=== PATIENT | female | born 2000 | race Two or more races ===

== ENCOUNTER → 2023-11-25 10:20 | Outpatient (REF) | payer BC, SELFPAY ==
[2023-11-25 11:47] LABS: % Basophils 1.2 % (0-2); % Eosinophils 2.8 % (0-6); % Immature Granulocytes 0.4 % (0-0.5); % Monocytes 7.9 % (1.7-9.3); % Neutrophils 56.7 % (42.2-75.2); Absolute Basophils 0.1 10^3/uL (0-0.2); Absolute Eosinophils 0.1 10^3/uL (0-0.7); Absolute Lymphocytes 1.6 10^3/uL (1.2-3.4); Absolute Monocytes 0.4 10^3/uL (0.1-0.6); Absolute Neutrophils 2.9 10^3/uL (1.4-6.5); Hematocrit 38.6 % (37.0-47.0); Hemoglobin 12.9 g/dL (12.0-16.0); Mean Corp Hgb Conc. 33.4 g/dL (33.0-37.0); Mean Corpuscular Hgb 26.9 pg (27.0-31.0); Mean Corpuscular Volume 80.6 fL (81.0-99.0); Mean Platelet Volume 9.9 fL (7.4-10.4); Nucleated Red Blood Cells % 0 %; Platelet Count 296 10^3/uL (130-400); Red Blood Cell Count 4.79 10^6/uL (4.20-5.40); Red Cell Dist. Width 13.7 % (11.5-14.5)
[2023-11-25 12:05] LABS: Erythrocyte Sed Rate 7 mm/hour (0-20)
[2023-11-25 12:11] LABS: C-Reactive Protein < 5.00 mg/L (0.0-10.00)
[2023-11-25 12:13] LABS: ALT (SGPT) 14 U/L (0-35); AST (SGOT) 20 U/L (14-36); Albumin 4.8 g/dl (3.5-5.0); Alkaline Phosphatase 58 U/L (38-126); Blood Urea Nitrogen 15 mg/dl (7-17); Calcium 9.9 mg/dl (8.4-10.2); Carbon Dioxide 25 mmol/L (22-30); Chloride 104 mmol/L (98-107); Glucose 82 mg/dl (70-99); HDL Cholesterol 64 mg/dl; Iron 61 ug/dl (37-170); LDL Cholesterol, Calculated 73 mg/dl; Potassium 4.3 mmol/L (3.5-5.1); Sodium 136 mmol/L (135-145); Total Bilirubin 0.3 mg/dl (0.2-1.3); Total Cholesterol 146 mg/dl (50-199); Total Protein 7.3 g/dl (6.3-8.2); Triglyceride 47 mg/dl (10-149); Very Low Density Lipoprotein 9 mg/dl (0-30); eGFR > 60.00
[2023-11-25 12:22] LABS: Percent Saturation 12 % (20-50); Total Iron Binding Capacity 477 ug/dl (265-497)
[2023-11-25 12:42] LABS: TSH Reflex To Free T4 1.41 uIU/ml (0.47-4.68)
[2023-11-25 13:17] LABS: Folate 5.9 ng/ml (2.76-20); Vitamin B12 221 pg/ml (239-931)
[2023-11-25 15:22] LABS: Rheumatoid Agglutinin Less Than 10 IU (<10 IU)
[2023-11-26 22:13] LABS: ANA, IgG Reflex to HEp-2 Detected (None Detected)
== END ==
LOC: REG 10:20
PROVIDERS: ATTENDING PHYSICIAN Internal Medicine Cardiovascular Disease; FAMILY PHYSICIAN Family Medicine; OTHER PHYSICIAN Psychiatry & Neurology Neurology
DX: Z00.00 Encounter for general adult medical examination without abnormal findings (principal)
CPT/HCPCS: 36415; 80053; 80061; 82607; 82728; 82746; 83540; 83550; 84443; 85025; 85652; 86038; 86140; 86430

== ENCOUNTER → 2023-11-30 18:07 | Outpatient (REF) | payer BC, SELFPAY ==
[2023-12-01 15:04] LABS: tTG IgA Antibody 5.8 EU/ml (0-19); tTG IgG Antibody 11.2 EU/ml (0-19)
[2023-12-01 23:21] LABS: IgA 222 mg/dl (70-400)
[2023-12-03 02:10] LABS: ds-DNA Ab, IgG Reflex To Titer 0 IU (0-24)
== END ==
LOC: CLAB 18:07
PROVIDERS: ATTENDING PHYSICIAN Family Medicine
DX: E61.1 Iron deficiency (principal); R76.8 Other specified abnormal immunological findings in serum; E53.8 Deficiency of other specified B group vitamins
CPT/HCPCS: 36415; 82784; 83516; 83921; 86225; 86231; 86235; 86340

== ENCOUNTER → 2024-01-06 09:47 | Outpatient (REF) | payer BC, SELFPAY ==
[2024-01-14 23:45] LABS: Chlamydia trachomatis,ThinPrep Negative (Negative); Neisseria gonorrhoeae,ThinPrep Negative (Negative); Specimen Source Cervical
== END ==
LOC: CPAP 09:47
PROVIDERS: ATTENDING PHYSICIAN Obstetrics & Gynecology Gynecology
DX: Z01.419 Encounter for gynecological examination (general) (routine) without abnormal findings (principal); Z20.2 Contact with and (suspected) exposure to infections with a predominantly sexual mode of transmission
CPT/HCPCS: 87491; 87591; G0123

== ENCOUNTER → 2024-02-22 12:37 | Outpatient (REF) | payer BC, SELFPAY ==
[2024-02-22 14:55] LABS: Urine Albumin Negative (Neg - Trace); Urine Bilirubin Negative (Negative); Urine Character Slightly Cloudy (Clear); Urine Color Yellow; Urine Glucose Negative (Negative); Urine Ketone Negative (Negative); Urine Leukocyte Negative (Negative); Urine Nitrite Negative (Negative); Urine Occult Blood Negative (Negative); Urine Specific Gravity 1.015 (<1.030); Urine Urobilinogen Negative (Neg - 1+)
[2024-02-22 14:56] LABS: % Basophils 0.7 % (0-2); % Eosinophils 2.2 % (0-6); % Immature Granulocytes 0.2 % (0-0.5); % Monocytes 9.5 % (1.7-9.3); % Neutrophils 61.4 % (42.2-75.2); Absolute Eosinophils 0.1 10^3/uL (0-0.7); Absolute Lymphocytes 1.4 10^3/uL (1.2-3.4); Absolute Monocytes 0.5 10^3/uL (0.1-0.6); Absolute Neutrophils 3.3 10^3/uL (1.4-6.5); Hematocrit 37.7 % (37.0-47.0); Hemoglobin 12.6 g/dL (12.0-16.0); Mean Corp Hgb Conc. 33.4 g/dL (33.0-37.0); Mean Corpuscular Volume 83.8 fL (81.0-99.0); Mean Platelet Volume 9.8 fL (7.4-10.4); Nucleated Red Blood Cells % 0 %; Platelet Count 301 10^3/uL (130-400); Red Cell Dist. Width 13.2 % (11.5-14.5); White Blood Cell Count 5.4 10^3/uL (4.8-10.8)
[2024-02-22 15:08] LABS: Urine Protein < 5 mg/dl
[2024-02-22 15:12] LABS: Erythrocyte Sed Rate 6 mm/hour (0-20)
[2024-02-22 15:28] LABS: ALT (SGPT) 18 U/L (0-35); AST (SGOT) 21 U/L (14-36); Albumin 4.6 g/dl (3.5-5.0); Alkaline Phosphatase 62 U/L (38-126); Blood Urea Nitrogen 10 mg/dl (7-17); Calcium 9.5 mg/dl (8.4-10.2); Carbon Dioxide 26 mmol/L (22-30); Chloride 103 mmol/L (98-107); Glucose 83 mg/dl (70-99); Potassium 4.3 mmol/L (3.5-5.1); Sodium 144 mmol/L (135-145); Total Bilirubin 0.5 mg/dl (0.2-1.3); Total Protein 7.4 g/dl (6.3-8.2); eGFR > 60.00
[2024-02-22 15:32] LABS: C-Reactive Protein < 5.00 mg/L (0.0-10.00)
[2024-02-22 15:58] LABS: TSH 0.47 uIU/ml (0.47-4.68)
[2024-02-23 23:31] LABS: Complement C3 98 mg/dl (88-165)
[2024-02-24 08:53] LABS: Rheumatoid Agglutinin Less Than 10 IU (<10 IU)
[2024-02-25 00:13] LABS: Complement Act., Total (CH50) 57.9 U/mL (38.7-89.9)
[2024-02-25 00:52] LABS: CCP Antibody IgG/IgA 2 Units (0-19)
[2024-02-25 02:05] LABS: Beta-2-Glycoprotein I Ab. IgG <10 SGU (<=20); Beta-2-Glycoprotein I Ab. IgM <10 SMU (<=20)
[2024-02-25 08:18] LABS: Cardiolipin IgA Antibody <10 APL (<=11); Cardiolipin IgM Antibody <10 MPL (<=12); Cardiolipin Igg Antibody <10 GPL (<=14)
[2024-02-25 08:35] LABS: Smith/RNP (ENA), IgG 5 Units (0-19)
[2024-02-25 08:40] LABS: SSA 52 (Ro)(ENA) Ab, IgG 2 AU/mL (0-40); SSA 60 (Ro)(ENA) Ab, IgG 0 AU/mL (0-40); SSB (La)(ENA) Ab, IgG 0 AU/mL (0-40); Scleroderma Antibody (Scl-70) 2 AU/mL (0-40)
== END ==
LOC: HWLAB 12:37
PROVIDERS: ATTENDING PHYSICIAN Student in an Organized Health Care Education/Training Program; FAMILY PHYSICIAN Family Medicine
DX: I73.00 Raynaud's syndrome without gangrene (principal); K12.1 Other forms of stomatitis; R21 Rash and other nonspecific skin eruption; R76.8 Other specified abnormal immunological findings in serum
CPT/HCPCS: 36415; 80053; 81003; 82570; 84156; 84443; 85025; 85652; 86140; 86146; 86147; 86160; 86162; 86200; 86235; 86430

== ENCOUNTER → 2025-02-08 09:00 | Outpatient (REF) | payer BC, SELFPAY ==
[2025-02-08 09:57] LABS: Urine Character Clear (Clear)
[2025-02-08 10:12] LABS: Hematocrit 39.9 % (37.0-47.0); Hemoglobin 13.0 g/dL (12.0-16.0); Mean Corp Hgb Conc. 32.6 g/dL (33.0-37.0); Mean Corpuscular Volume 83.6 fL (81.0-99.0); Nucleated Red Blood Cells % 0 %; Platelet Count 292 10^3/uL (130-400); Red Cell Dist. Width 12.5 % (11.5-14.5)
[2025-02-08 10:16] LABS: Urine Squamous Cell >30 /LPF (Few)
[2025-02-08 10:17] LABS: ALT (SGPT) 19 U/L (0-35); AST (SGOT) 26 U/L (14-36); Albumin 5.0 g/dl (3.5-5.0); Alkaline Phosphatase 66 U/L (38-126); Blood Urea Nitrogen 14 mg/dl (7-17); Calcium 9.6 mg/dl (8.4-10.2); Carbon Dioxide 23 mmol/L (22-30); Chloride 103 mmol/L (98-107); Glucose 79 mg/dl (70-99); Potassium 4.2 mmol/L (3.5-5.1); Sodium 138 mmol/L (135-145); Total Protein 8.1 g/dl (6.3-8.2); eGFR > 60.00
[2025-02-08 10:18] LABS: C-Reactive Protein < 5.00 mg/L (0.0-10.00)
[2025-02-08 10:19] LABS: Urine White Cell 0-2 /HPF (0-5)
[2025-02-11 02:16] LABS: ds-DNA Ab, IgG Reflex To Titer 4 IU (0-24)
== END ==
LOC: REG 09:00
PROVIDERS: ATTENDING PHYSICIAN Student in an Organized Health Care Education/Training Program; FAMILY PHYSICIAN Family Medicine
DX: I73.00 Raynaud's syndrome without gangrene (principal); K12.1 Other forms of stomatitis; R21 Rash and other nonspecific skin eruption
CPT/HCPCS: 36415; 80053; 81003; 81015; 82570; 84156; 85025; 85652; 86140; 86160; 86225; 86256